=== PATIENT | male | born 1965 ===

== ENCOUNTER 2018-10-12 08:15 | Observation (INO) | payer OTHER ==
[2018-10-12] MEDS ORDERED: Albuterol-Ipratrop 3 mg / 0.5 (3 ml) UD ONE ×2 (08:35→18:29)
[2018-10-12] MEDS ORDERED: Albuterol-Ipratrop 3 mg / 0.5 (3 ml) UD IH STA (09:01)
[2018-10-12] MEDS ORDERED: Albuterol 0.083% Inhal Sol (2.5 mg/3 mL) UD INH STA (09:01)
[2018-10-12] MEDS ORDERED: Albuterol 0.083% Inhal Sol (2.5 mg/3 mL) UD ONE ×3 (09:12→11:05)
[2018-10-12] MEDS ORDERED: Albuterol 0.083% Inhal Sol (2.5 mg/3 mL) UD IH STA ×2 (09:14→10:45)
--- NOTE | 2018-10-12 10:32 | C.PDOC ---
History Of Present Illness 52 y/o male, with history of asthma, presents to ED complaining of cough and wheezing that started yesterday. States he doesnt have nebulizer at home. He denies any fever, chills, SOB, chest pain, or other complaints. Time Seen by Provider: 10/12/18 08:30 Chief Complaint (Nursing): Respiratory Distress History Per: Patient History/Exam Limitations: no limitations Onset/Duration Of Symptoms: Days Current Symptoms Are (Timing): Still Present Past Medical History Reviewed: Historical Data, Nursing Documentation, Vital Signs Vital Signs: Last Vital Signs Temp 97.9 F 10/12/18 10:12 Pulse 118 H 10/12/18 10:12 Resp 20 10/12/18 10:12 BP 138/81 10/12/18 10:12 Pulse Ox 96 10/12/18 10:12 Primary Care Provider: Blily Duran - Medical History PMH: Asthma Denies: Chronic Kidney Disease Family History: States: No Known Family Hx - Social History Hx Alcohol Use: Yes Hx Substance Use: No - Immunization History Hx Tetanus Toxoid Vaccination: No Hx Influenza Vaccination: No Review Of Systems Except As Marked, All Systems Reviewed And Found Negative. Constitutional: Negative for: Fever, Chills Cardiovascular: Negative for: Chest Pain, Palpitations Respiratory: Positive for: Cough, Wheezing. Negative for: Shortness of Breath Physical Exam - Physical Exam Appears: Non-toxic, No Acute Distress Skin: Warm, Dry Head: Normacephalic Eye(s): bilateral: Normal Inspection Oral Mucosa: Moist Neck: Supple Cardiovascular: Rhythm Regular, No Murmur Respiratory: No Accessory Muscle Use, No Rales, No Rhonchi, Wheezing (bilateral expiratory wheezing) Gastrointestinal/Abdominal: Soft Extremity: No Pedal Edema Extremity: Bilateral: Normal Color And Temperature, Normal ROM Neurological/Psych: Oriented x3, Normal Speech ED Course And Treatment - Laboratory Results Result Diagrams: 10/12/18 13:13 10/12/18 13:13 O2 Sat by Pulse Oximetry: 96 (RA) Pulse Ox Interpretation: Normal - Other Rad CXR X-Ray: Read By Radiologist Interpretation: FINDINGS: LUNGS: No active pulmonary disease. PLEURA: No sig nificant pleural effusion identified. No pneumothorax apparent. CARDIOVASCULAR: No aortic atherosclerotic calcification present. Normal cardiac size. No pulmonary vascular congestion. OSSEOUS STRUCTURES: No significant abnormalities. VISUALIZED UPPER ABDOMEN: Normal. OTHER FINDINGS: None. IMPRESSION: No radiographic evidence of pneumonia Progress Note: Chest XR ordered, which was normal. Patient given prednisone, duoneb, and albuterol. On re-evaluation, patient is feelingb slightly better, but still wheezing. Update: (10:46) Patient is tachycardic and O2 Sat on room air is still low, will given magnesium sulfate IV. Solumedrol IV oredered. Patient stil wheezing and hypoxic. contacted Hospitalist interim controller who covers for patient's PMD Jannie. Patient will go to tele for observation and nebulizer treatments. Disposition - Disposition Disposition: HOSPITALIZED Disposition Time: 14:08 Condition: FAIR - Clinical Impression Clinical Impression: Exacerbation of asthma - PA / [employer]ER / Resident Statement MD/DO has reviewed & agrees with the documentation as recorded. - Scribe Statement The provider has reviewed the documentation as recorded by the Scribe Nathaly Lindsay All medical record entries made by the Scribe were at my direction and personally dictated by me. I have reviewed the chart and agree that the record accurately reflects my personal performance of the history, physical exam, medical decision making, and the department course for this patient. I have also personally directed, reviewed, and agree with the discharge instructions and disposition. Decision To Admit - Pt Status Changed To: Hospital Disposition Of: Observation - . Bed Request Type: Telemetry Admitting Physician: Valery Cedeno Patient Diagnosis: Exacerbation of asthma
[2018-10-12] MEDS ORDERED: Magnesium Sulfate 1 gm in D5W 1 GM/100 ML BAG IVPB STA ×2 (10:44→12:15)
[2018-10-12] MEDS ORDERED: Magnesium Sulfate 1 gm in D5W 1 GM/100 ML BAG IVPB ONE ×2 (11:05→12:00)
--- NOTE | 2018-10-12 11:26 | RAD ---
Date of service: 10/12/2018 HISTORY: cough/wheezing COMPARISON: Comparison is made with 03/17/2012 TECHNIQUE: Chest PA and lateral views FINDINGS: LUNGS: No active pulmonary disease. PLEURA: No significant pleural effusion identified. No pneumothorax apparent. CARDIOVASCULAR: No aortic atherosclerotic calcification present. Normal cardiac size. No pulmonary vascular congestion. OSSEOUS STRUCTURES: No significant abnormalities. VISUALIZED UPPER ABDOMEN: Normal. OTHER FINDINGS: None. IMPRESSION: No radiographic evidence of pneumonia
[2018-10-12 13:26] LABS: BASO % 0.4 % (0.0-2.0); EOS % 0.3 % (0.0-4.0); HEMOGLOBIN 16.5 g/dL (12.0-18.0); LYMPH # 0.6 K/uL (1.0-4.3); LYMPH % 5.2 % (20.0-40.0); MEAN CELL VOLUME 80.2 fL (80.0-94.0); MEAN CORPUSCULAR HEMOGLOBIN 27.7 pg (27.0-31.0); MEAN CORPUSCULAR HGB CONC 34.5 g/dL (33.0-37.0); MEAN PLATELET VOLUME 8.9 fL (7.2-11.7); MONO # 0.2 K/uL (0.0-0.8); MONO % 1.5 % (0.0-10.0); NEUT # 11.6 K/uL (1.8-7.0); NEUT % 92.6 % (50.0-75.0); NRBC % 0.1 % (0.0-2.0); PLATELET COUNT 270 K/uL (130-400); RBC 5.96 Mil/uL (4.40-5.90); RED CELL DISTRIBUTION WIDTH 13.9 % (11.5-14.5); WHITE BLOOD COUNT 12.5 K/uL (4.8-10.8)
[2018-10-12 13:41] LABS: ALB/GLOB RATIO 1.3 (1.0-2.1); ALBUMIN 4.4 g/dL (3.5-5.0); BLOOD UREA NITROGEN 7 mg/dL (9-20); CALCIUM 9.2 mg/dl (8.6-10.4); GFR NON-AFRICAN AMERICAN > 60
[2018-10-12 13:42] LABS: ALT/SGPT 31 U/L (21-72); AST/SGOT 26 U/L (17-59)
[2018-10-12 14:07] LABS: BANDS 3 % (0-2); LYMPHOCYTE 7 % (20-40); MONOCYTE 1 % (0-10); NEUTROPHIL 89 % (50-75); PLATELET ESTIMATE NORMAL (NORMAL); TOTAL CELLS COUNTED 100
[2018-10-12 14:08] LABS: ANISOCYTOSIS SLIGHT; LARGE PLATELETS PRESENT
--- NOTE | 2018-10-12 14:35 | CP.PCM.HP ---
<Kavita Bates - Last Filed: 10/12/18 20:54> History of Present Illness - History of Present Illness History of Present Illness: Resident History & Physical for Hospitalist Service Patient is a 52 year old male with past medical history of asthma (no previous intubations) and impaired glucose tolerance presenting with chief complaint of shortness of breath which began two days ago. Patient denies any nighttime awakenings, however he does use his ventolin inhaler and theophylline 7-10x a week. Admits to changes in severity of shortness of breath with weather changes as well as weight changes. Denies any recent illnesses, sick contacts, or travel. Denies fevers, chills, chest pain, nausea, vomiting, abdominal pain, diarrhea, dysuria. PMH: asthma, IGT PSH: denies SHx: 1-2 cigarettes a day for the past 30 years, social alcohol use, denies illicit drugs FHx: father from M.I., mother from natural causes Allergies: NKDA PMD: Dr. Arpit Duran Present on Admission - Present on Admission Any Indicators Present on Admission: No Review of Systems - Review of Systems All systems: reviewed and no additional remarkable complaints except (as per HPI) Past Patient History - Infectious Disease Hx of Infectious Diseases: None - Past Social History Smoking Status: Light Smoker < 10 Cigarettes Daily - CARDIAC Hx Cardiac Disorders: No - PULMONARY Hx Asthma: Yes - NEUROLOGICAL Hx Neurological Disorder: No - HEENT Hx HEENT Problems: No - RENAL Hx Chronic Kidney Disease: No - ENDOCRINE/METABOLIC Hx Endocrine Disorders: No - HEMATOLOGICAL/ONCOLOGICAL Hx Blood Disorders: No - INTEGUMENTARY Hx Dermatological Problems: No - MUSCULOSKELETAL/RHEUMATOLOGICAL Hx Musculoskeletal Disorders: No - GASTROINTESTINAL Hx Gastrointestinal Disorders: No - GENITOURINARY/GYNECOLOGICAL Hx Genitourinary Disorders: No - PSYCHIATRIC Hx Substance Use: No - SURGICAL HISTORY Hx Surgeries: No - ANESTHESIA Hx Anesthesia: No Meds Home Medications: Home Medication List Medication Instructions Recorded Confirmed Type Albuterol 0.083% [Albuterol 3 ml IH .Q4-6H #100 vial 10/12/18 Rx Sulfate 3 Ml] Albuterol HFA [Ventolin HFA 90 1 puff IH .Q4-6H #1 inhaler 10/12/18 Rx mcg/actuation (8 g)] Mask, Face [Nebulizer Aerosol Mask 1 dev XX PRN PRN #1 dev 10/12/18 Rx Adult] Nebulizer [Compact Compressor 1 dev XX PRN PRN #1 dev 10/12/18 Rx Nebulizer] predniSONE [predniSONE Tab] 2 tab PO DAILY #8 tab 10/12/18 Rx Atorvastatin [Lipitor] 10 mg PO HS #30 tab 10/13/18 Rx Losartan [Cozaar] 12.5 mg PO DAILY #30 tab 10/13/18 Rx metFORMIN [glucOPHAGE] 500 mg PO BID #60 tab 10/13/18 Rx Fluticasone/Vilanterol 100/25 1 puff INH RQD #1 inh 10/14/18 Rx [Breo Ellipta 100-25 MCG INH] Omeprazole 40 mg PO DAILY #5 capsule. 10/14/18 Rx Singulair 10 mg PO DAILY #30 10/14/18 Rx Allergies/Adverse Reactions: Allergies Allergy/AdvReac Type Severity Reaction Status Date / Time No Known Allergies Allergy Verified 10/12/18 08:25 Physical Exam - Constitutional Appears: Non-toxic, No Acute Distress - Head Exam Head Exam: ATRAUMATIC, NORMOCEPHALIC - Eye Exam Eye Exam: EOMI, Normal appearance, PERRL - ENT Exam ENT Exam: Mucous Membranes Moist - Respiratory Exam Respiratory Exam: Prolonged Expiratory Phase, Wheezes. absent: Accessory Muscle Use, Decreased Breath Sounds, Rales, Rhonchi, Respiratory Distress Additional comments: speaking in full sentences - Cardiovascular Exam Cardiovascular Exam: Tachycardia, REGULAR RHYTHM, +S1, +S2. absent: Systolic Murmur - GI/Abdominal Exam GI & Abdominal Exam: Normal Bowel Sounds, Soft. absent: Distended, Firm, Guarding, Rebound, Rigid, Tenderness - Extremities Exam Extremities exam: Positive for: normal inspection - Back Exam Back exam: NORMAL INSPECTION. absent: CVA tenderness (L), CVA tenderness (R) - Neurological Exam Neurological exam: Alert, CN II-XII Intact, Oriented x3 - Psychiatric Exam Psychiatric exam: Normal Affect, Normal Mood - Skin Skin Exam: Dry, Intact, Warm Results - Vital Signs Recent Vital Signs: Last Vital Signs Temp 97.9 F 10/12/18 10:12 Pulse 109 H 10/12/18 13:32 Resp 18 10/12/18 13:32 BP 133/68 10/12/18 13:32 Pulse Ox 96 10/12/18 14:10 - Labs Result Diagrams: 10/12/18 13:13 10/12/18 13:13 Labs: Laboratory Results - last 24 hr 10/12/18 10/12/18 13:13 13:13 WBC 12.5 H RBC 5.96 H Hgb 16.5 Hct 47.8 MCV 80.2 MCH 27.7 MCHC 34.5 RDW 13.9 Plt Count 270 MPV 8.9 Neut % (Auto) 92.6 H Lymph % (Auto) 5.2 L [place] % (Auto) 1.5 Eos % (Auto) 0.3 Baso % (Auto) 0.4 Neut # (Auto) 11.6 H Lymph # (Auto) 0.6 L [place] # (Auto) 0.2 Eos # (Auto) 0.0 Baso # (Auto) 0.0 Neutrophils % (Manual) 89 H Band Neutrophils % 3 H Lymphocytes % (Manual) 7 L Monocytes % (Manual) 1 Platelet Estimate Normal Large Platelets Present Anisocytosis (manual) Slight Sodium 135 Potassium 3.8 Chloride 103 Carbon Dioxide 23 Anion Gap 14 BUN 7 L Creatinine 0.6 L Est GFR ( Amer) > 60 Est GFR (Non-Af Amer) > 60 Random Glucose 191 H Calcium 9.2 Total Bilirubin 0.6 AST 26 ALT 31 Alkaline Phosphatase 149 H Total Protein 7.8 Albumin 4.4 Globulin 3.3 Albumin/Globulin Ratio 1.3 Assessment & Plan - Assessment and Plan (Free Text) Assessment: Patient is a 52 year old male with past medical history of asthma (no previous intubations) and impaired glucose tolerance presenting with acute exacerbation of asthma. Plan: Acute exacerbation of asthma - received multiple duonebs and solu-medrol in ED - Solu-medrol 40 mg IV Q8H - Duonebs Q6H with pre and post peak flow - Pulmonology Dr. Kumari consulted, appreciate recs - Breo Ellipta 25/100 1 puff daily Leukocytosis with left shift, acute - likely due to steroids as labwork done 4 hours after administration of prednisone - CXR shows no active disease, afebrile Impaired glucose tolerance, chronic - TSH, free T4 - Lipid panel - Hgba1c - RISS, hypoglycemic protocol - diabetic diet Nicotine addiction - cessation counseling provided - Nicotine patch taper PPX - SCDs - Protonix as patient is on steroids Dispo: pending pulmonology recs, place patient on observation and if peak flow improves plan for discharge 10/13/[address] Oj Bates PGY-1 <Oj Martinez J - Last Filed: 10/14/18 19:15> Results - Vital Signs Recent Vital Signs: Last Vital Signs Temp 98.2 F 10/14/18 15:00 Pulse 77 10/14/18 15:00 Resp 20 10/14/18 15:00 BP 133/72 10/14/18 15:00 Pulse Ox 94 L 10/14/18 15:00 - Labs Result Diagrams: 10/14/18 08:37 10/14/18 08:37 Labs: Laboratory Results - last 24 hr 10/13/18 10/14/18 10/14/18 21:31 07:45 08:37 WBC 23.1 H RBC 5.63 Hgb 15.9 Hct 46.0 MCV 81.6 MCH 28.3 MCHC 34.6 RDW 14.1 Plt Count 323 MPV 9.2 Neut % (Auto) 91.1 H Lymph % (Auto) 7.5 L [place] % (Auto) 1.2 Eos % (Auto) 0.0 Baso % (Auto) 0.2 Neut # (Auto) 21.1 H Lymph # (Auto) 1.7 [place] # (Auto) 0.3 Eos # (Auto) 0.0 Baso # (Auto) 0.0 Neutrophils % (Manual) 93 H Lymphocytes % (Manual) 7 L Monocytes % (Manual) TEST NOT PERFORMED Platelet Estimate Normal RBC Morphology Normal Sodium Potassium Chloride Carbon Dioxide Anion Gap BUN Creatinine Est GFR ( Amer) Est GFR (Non-Af Amer) POC Glucose (mg/dL) 179 H 165 H Random Glucose Calcium Phosphorus Magnesium Total Bilirubin AST ALT Alkaline Phosphatase Total Protein Albumin Globulin Albumin/Globulin Ratio 10/14/18 10/14/18 08:37 11:23 WBC RBC Hgb Hct MCV MCH MCHC RDW Plt Count MPV Neut % (Auto) Lymph % (Auto) [place] % (Auto) Eos % (Auto) Baso % (Auto) Neut # (Auto) Lymph # (Auto) [place] # (Auto) Eos # (Auto) Baso # (Auto) Neutrophils % (Manual) Lymphocytes % (Manual) Monocytes % (Manual) Platelet Estimate RBC Morphology Sodium 137 Potassium 4.9 Chloride 102 Carbon Dioxide 26 Anion Gap 14 BUN 20 Creatinine 0.8 Est GFR ( Amer) > 60 Est GFR (Non-Af Amer) > 60 POC Glucose (mg/dL) 199 H Random Glucose 151 H Calcium 9.6 Phosphorus 4.2 Magnesium 2.4 H Total Bilirubin 0.6 AST 26 ALT 33 Alkaline Phosphatase 109 Total Protein 7.4 Albumin 4.1 Globulin 3.3 Albumin/Globulin Ratio 1.3 Attending/Attestation - Attestation I have personally seen and examined this patient.: Yes I have fully participated in the care of the patient.: Yes I have reviewed all pertinent clinical information: Yes Notes (Text): 10/14/18 19:14 This is a late entry. History, Physical, Assessment and Plan, Orders and Care of this patient was gone over in detail with resident Dr. Walls. Oj Martinez D.O.
[2018-10-12] MEDS ORDERED: Dextrose 50% SYRINGE Inj (50 ml) IV PRN (15:47)
[2018-10-12] MEDS ORDERED: Glucagon Recombinant 1 mg Inj IM PRN (15:47)
[2018-10-12] MEDS ORDERED: MethylPREDNISolone 40 mg Vial ONE (16:52)
[2018-10-12] MEDS: MethylPREDNISolone 40 mg Vial IVP SCH (17:10)
[2018-10-12] MEDS ORDERED: (Novolin R) Insulin Human Regular 100 units/ml vial ONE (17:12)
[2018-10-12] MEDS: (Novolin R) Insulin Human Regular 100 units/ml vial SC SCH ×2 (17:14→21:55)
[2018-10-12] MEDS: Albuterol-Ipratrop 3 mg / 0.5 (3 ml) UD INH SCH (18:26)
[2018-10-12 19:36] VITALS: RESP 20
[2018-10-13] MEDS: MethylPREDNISolone 40 mg Vial IVP SCH ×3 (00:27→16:48)
[2018-10-13] MEDS: Albuterol-Ipratrop 3 mg / 0.5 (3 ml) UD INH SCH ×2 (01:14→06:59)
[2018-10-13 07:29] LABS: HDL CHOLESTEROL 61 mg/dL (30-70)
[2018-10-13 07:39] LABS: LDL CHOLESTEROL 141 mg/dL (0-129)
[2018-10-13] MEDS: (Novolin R) Insulin Human Regular 100 units/ml vial SC SCH ×4 (07:45→21:43)
[2018-10-13] MEDS ORDERED: Fluticasone-Vilanterol 100/25mcg Diskus INH SCH (08:00)
--- NOTE | 2018-10-13 09:49 | CP.PCM.PN ---
<Denis Valenzuela - Last Filed: 10/13/18 16:13> Subjective - Date & Time of Evaluation Date of Evaluation: 10/13/18 Time of Evaluation: 09:15 - Subjective Subjective: PGY1 Medicine progress note for Dr. Jazmyn Martinez Pt seen and examined at bedside. Pt is resting comfortably. No acute events overnight. Continues to report intermittent shortness of breath, exacerbated with ambulation. Endorses palpitations after duoneb treatment. Denies fevers, chills, chest pain, abdominal pain, n/v/d, leg pain or swelling, headache, dizziness. Objective - Vital Signs/Intake and Output Vital Signs (last 24 hours): Temp Pulse Resp BP Pulse Ox 97.9 F 108 H 20 132/77 96 10/13/18 07:45 10/13/18 07:45 10/13/18 07:45 10/13/18 07:45 10/13/18 07:45 - Medications Medications: Current Medications Acetaminophen (Tylenol 325mg Tab) 650 mg PO Q6H PRN PRN Reason: Pain, moderate (4-7) Albuterol/Ipratropium (Duoneb 3 Mg/0.5 Mg (3 Ml) Ud) 3 ml INH RQ6 [facility]ON Last Admin: 10/13/18 06:59 Dose: 3 ml Dextrose (Dextrose 50% Inj) 0 ml IV STAT PRN; Protocol PRN Reason: Hypoglycemia Protocol Dextrose (Glutose 15) 0 gm PO ONCE PRN; Protocol PRN Reason: Hypoglycemia Protocol Enoxaparin Sodium (Lovenox) 40 mg SC DAILY TOAN Fluticasone/Vilanterol (Breo Ellipta 100-25 Mcg Inh) 1 puff INH RQD TOAN Last Admin: 10/13/18 08:22 Dose: Not Given Glucagon (Glucagen Diagnostic Kit) 0 mg IM STAT PRN; Protocol PRN Reason: Hypoglycemia Protocol Dextrose (Dextrose 5% In Water 1000 Ml) 1,000 mls @ 0 mls/hr IV .Q0M PRN; Protocol PRN Reason: Hypoglycemia Protocol Insulin Human Regular (Novolin R) 0 unit SC ACHS TOAN; Protocol Last Admin: 10/13/18 07:45 Dose: 2 units Methylprednisolone (Solu-Medrol) 40 mg IVP Q8H TOAN Last Admin: 10/13/18 07:45 Dose: 40 mg Nicotine (Nicoderm Cq) 1 patch TD DAILY [facility] Last Admin: 10/12/18 17:14 Dose: Not Given Pneumococcal Polyvalent Vaccine (Pneumovax 23 Vaccine) 0.5 ml IM .ONCE ONE Stop: 10/13/18 10:01 - Labs Labs: 10/12/18 13:13 10/12/18 13:13 - Constitutional Appears: Non-toxic, No Acute Distress - Head Exam Head Exam: ATRAUMATIC, NORMAL INSPECTION - Eye Exam Eye Exam: EOMI, Normal appearance - ENT Exam ENT Exam: Mucous Membranes Moist - Respiratory Exam Respiratory Exam: Wheezes. absent: Rales, Respiratory Distress, Stridor - Cardiovascular Exam Cardiovascular Exam: Tachycardia (at approximately 100), REGULAR RHYTHM, +S1, + S2. absent: Diastolic murmur, Irregular Rhythm - GI/Abdominal Exam GI & Abdominal Exam: Soft, Normal Bowel Sounds. absent: Distended, Firm, Guarding, Rigid, Tenderness - Extremities Exam Extremities Exam: Normal Capillary Refill, Normal Inspection. absent: Calf Tenderness, Pedal Edema, Tenderness - Back Exam Back Exam: NORMAL INSPECTION - Neurological Exam Neurological Exam: Alert, Awake - Psychiatric Exam Psychiatric exam: Normal Affect, Normal Mood - Skin Skin Exam: Dry, Normal Color, Warm Assessment and Plan (1) Exacerbation of asthma Assessment & Plan: Ipratropium INH due to pt having palpitations due to Albuterol Breo Ellipta once daily Solumedrol 40 mg IV q8 Pulmonology, Dr. Kumari, consulted. Status: Acute (2) Diabetes Assessment & Plan: Hx of Impaired Glucose Tolerance HgbA1c is 6.8 Accuchecks ACHS RISS Hypoglycemia protocol TSH is 0.33, f/u FT4 On discharge: Atorvastatin 10 mg PO QD Losartan 12.5 mg PO QD Metformin 500 mg PO BID Status: Acute (3) Nicotine dependence Assessment & Plan: Nicotine patch Status: Acute (4) Prophylactic measure Assessment & Plan: Protonix 40 mg PO daily Lovenox 40 mg SC daily Case discussed with Dr. Jazmyn Valenzuela PGY1 Status: Acute <Oj Martinez - Last Filed: 10/14/18 19:14> Objective - Vital Signs/Intake and Output Vital Signs (last 24 hours): Temp Pulse Resp BP Pulse Ox 98.2 F 77 20 133/72 94 L 10/14/18 15:00 10/14/18 15:00 10/14/18 15:00 10/14/18 15:00 10/14/18 15:00 - Labs Labs: 10/14/18 08:37 10/14/18 08:37 Attending/Attestation - Attestation I have personally seen and examined this patient.: Yes I have fully participated in the care of the patient.: Yes I have reviewed all pertinent clinical information, including history, physical exam and plan: Yes Notes (Text): 10/14/18 19:14 This is a late entry. Care of this patient was gone over in detail with resident Dr. Valenzuela. Oj Martinez D.O.
[2018-10-13] MEDS: Enoxaparin 40 mg Syringe SC SCH (09:53)
[2018-10-13] MEDS ORDERED: Pneumococcal 23-Valent Vaccine IM ONE (10:00)
[2018-10-13 10:06] LABS: BASO # 0.1 K/uL (0.0-0.2); BASO % 0.3 % (0.0-2.0); HEMOGLOBIN 16.4 g/dL (12.0-18.0); LYMPH # 1.4 K/uL (1.0-4.3); LYMPH % 7.1 % (20.0-40.0); MEAN CELL VOLUME 81.4 fL (80.0-94.0); MEAN CORPUSCULAR HEMOGLOBIN 27.5 pg (27.0-31.0); MEAN CORPUSCULAR HGB CONC 33.7 g/dL (33.0-37.0); MEAN PLATELET VOLUME 9.4 fL (7.2-11.7); MONO # 0.2 K/uL (0.0-0.8); MONO % 0.9 % (0.0-10.0); NEUT # 18.7 K/uL (1.8-7.0); NEUT % 91.7 % (50.0-75.0); NRBC % 0.4 % (0.0-2.0); PLATELET COUNT 314 K/uL (130-400); RBC 5.99 Mil/uL (4.40-5.90); RED CELL DISTRIBUTION WIDTH 14.2 % (11.5-14.5)
[2018-10-13 10:08] LABS: WHITE BLOOD COUNT 20.4 K/uL (4.8-10.8)
[2018-10-13 10:29] LABS: ALB/GLOB RATIO 1.4 (1.0-2.1); ALBUMIN 4.6 g/dL (3.5-5.0); ALT/SGPT 26 U/L (21-72); AST/SGOT 39 U/L (17-59); BLOOD UREA NITROGEN 20 mg/dL (9-20); CALCIUM 9.7 mg/dl (8.6-10.4); GFR NON-AFRICAN AMERICAN > 60
[2018-10-13] MEDS: Pantoprazole 40 mg EC Tab PO SCH (11:06)
[2018-10-13 11:46] LABS: LYMPHOCYTE 6 % (20-40); NEUTROPHIL 94 % (50-75); TOTAL CELLS COUNTED 100
[2018-10-13 11:47] LABS: PLATELET ESTIMATE NORMAL (NORMAL)
[2018-10-13] MEDS ORDERED: Ipratropium 0.02% Inhal Soln (0.5 mg/2.5 ml) UD IH SCH (12:00)
--- NOTE | 2018-10-13 17:17 | CP.PCM.CON ---
History of Present Illness - History of Present Illness History of Present Illness: Reason for consultation: Shortness of breath 52-year-old male with history of asthma presented to emergency room complaining of shortness of breath worsening over the past few days. Denies cough, denies fever chills, denies chest pain. Also complaining of wheezing but denies nausea vomiting, diarrhea or constipation. Patient with long history of smoking PMH: asthma, IGT PSH: denies SHx: 1-2 cigarettes a day for the past 30 years, social alcohol use, denies illicit drugs FHx: father from M.I., mother from natural causes Allergies: NKDA Review of Systems - Review of Systems All systems: reviewed and no additional remarkable complaints except (Shortness of breath) Past Patient History - Infectious Disease Hx of Infectious Diseases: None - Past Social History Smoking Status: Light Smoker < 10 Cigarettes Daily - CARDIAC Hx Cardiac Disorders: No - PULMONARY Hx Asthma: Yes - NEUROLOGICAL Hx Neurological Disorder: No - HEENT Hx HEENT Problems: No - RENAL Hx Chronic Kidney Disease: No - ENDOCRINE/METABOLIC Hx Endocrine Disorders: No - HEMATOLOGICAL/ONCOLOGICAL Hx Blood Disorders: No - INTEGUMENTARY Hx Dermatological Problems: No - MUSCULOSKELETAL/RHEUMATOLOGICAL Hx Musculoskeletal Disorders: No - GASTROINTESTINAL Hx Gastrointestinal Disorders: No - GENITOURINARY/GYNECOLOGICAL Hx Genitourinary Disorders: No - PSYCHIATRIC Hx Substance Use: No - SURGICAL HISTORY Hx Surgeries: No - ANESTHESIA Hx Anesthesia: No Meds Home Medications: Home Medication List Medication Instructions Recorded Confirmed Type Albuterol 0.083% [Albuterol 3 ml IH .Q4-6H #100 vial 10/12/18 Rx Sulfate 3 Ml] Albuterol HFA [Ventolin HFA 90 1 puff IH .Q4-6H #1 inhaler 10/12/18 Rx mcg/actuation (8 g)] Mask, Face [Nebulizer Aerosol Mask 1 dev XX PRN PRN #1 dev 10/12/18 Rx Adult] Nebulizer [Compact Compressor 1 dev XX PRN PRN #1 dev 10/12/18 Rx Nebulizer] predniSONE [predniSONE Tab] 2 tab PO DAILY #8 tab 10/12/18 Rx Atorvastatin [Lipitor] 10 mg PO HS #30 tab 10/13/18 Rx Losartan [Cozaar] 12.5 mg PO DAILY #30 tab 10/13/18 Rx metFORMIN [glucOPHAGE] 500 mg PO BID #60 tab 10/13/18 Rx Allergies/Adverse Reactions: Allergies Allergy/AdvReac Type Severity Reaction Status Date / Time No Known Allergies Allergy Verified 10/12/18 08:25 - Medications Medications: Current Medications Acetaminophen (Tylenol 325mg Tab) 650 mg PO Q6H PRN PRN Reason: Pain, moderate (4-7) Dextrose (Dextrose 50% Inj) 0 ml IV STAT PRN; Protocol PRN Reason: Hypoglycemia Protocol Dextrose (Glutose 15) 0 gm PO ONCE PRN; Protocol PRN Reason: Hypoglycemia Protocol Enoxaparin Sodium (Lovenox) 40 mg SC DAILY [facility] Last Admin: 10/13/18 09:53 Dose: Not Given Fluticasone/Vilanterol (Breo Ellipta 100-25 Mcg Inh) 1 puff INH RQD [facility] Last Admin: 10/13/18 08:22 Dose: Not Given Glucagon (Glucagen Diagnostic Kit) 0 mg IM STAT PRN; Protocol PRN Reason: Hypoglycemia Protocol Dextrose (Dextrose 5% In Water 1000 Ml) 1,000 mls @ 0 mls/hr IV .Q0M PRN; Protocol PRN Reason: Hypoglycemia Protocol Insulin Human Regular (Novolin R) 0 unit SC ACHS [facility]; Protocol Last Admin: 10/13/18 16:48 Dose: Not Given Ipratropium Truchas (Atrovent) 0.5 mg IH RQ6 [facility] Last Admin: 10/13/18 13:40 Dose: 0.5 mg Methylprednisolone (Solu-Medrol) 40 mg IVP Q8H [facility] Last Admin: 10/13/18 16:48 Dose: 40 mg Nicotine (Nicoderm Cq) 1 patch TD DAILY [facility] Last Admin: 10/13/18 09:53 Dose: Not Given Pantoprazole Sodium (Protonix Ec Tab) 40 mg PO DAILY [facility] Last Admin: 10/13/18 11:06 Dose: 40 mg Pneumococcal Polyvalent Vaccine (Pneumovax 23 Vaccine) 0.5 ml IM .ONCE ONE Stop: 10/14/18 10:01 Physical Exam - Head Exam Head Exam: ATRAUMATIC, NORMOCEPHALIC - ENT Exam ENT Exam: Mucous Membranes Moist - Neck Exam Neck exam: Positive for: Normal Inspection - Respiratory Exam Respiratory Exam: Rhonchi, Wheezes - Cardiovascular Exam Cardiovascular Exam: REGULAR RHYTHM - GI/Abdominal Exam GI & Abdominal Exam: Normal Bowel Sounds, Soft - Extremities Exam Extremities exam: Positive for: normal inspection - Neurological Exam Neurological exam: Alert, Oriented x3 Results - Vital Signs Recent Vital Signs: Last Vital Signs Temp 98.1 F 10/13/18 16:00 Pulse 101 H 10/13/18 16:00 Resp 20 10/13/18 16:00 BP 133/78 10/13/18 16:00 Pulse Ox 93 L 10/13/18 16:00 - Labs Result Diagrams: 10/13/18 09:59 10/13/18 06:44 Labs: Laboratory Results - last 24 hr 10/12/18 10/12/18 10/12/18 17:53 17:53 21:47 WBC RBC Hgb Hct MCV MCH MCHC RDW Plt Count MPV Neut % (Auto) Lymph % (Auto) [place] % (Auto) Eos % (Auto) Baso % (Auto) Neut # (Auto) Lymph # (Auto) [place] # (Auto) Eos # (Auto) Baso # (Auto) Neutrophils % (Manual) Lymphocytes % (Manual) Monocytes % (Manual) Platelet Estimate RBC Morphology Sodium Potassium Chloride Carbon Dioxide Anion Gap BUN Creatinine Est GFR ( Amer) Est GFR (Non-Af Amer) POC Glucose (mg/dL) 302 H Random Glucose Hemoglobin A1c 6.8 H Calcium Phosphorus Magnesium Total Bilirubin AST ALT Alkaline Phosphatase Total Protein Albumin Globulin Albumin/Globulin Ratio Triglycerides Cholesterol LDL Cholesterol Direct HDL Cholesterol TSH 3rd Generation 0.33 L 10/13/18 10/13/18 10/13/18 06:44 07:11 09:59 WBC 20.4 H D RBC 5.99 H Hgb 16.4 Hct 48.8 MCV 81.4 MCH 27.5 MCHC 33.7 RDW 14.2 Plt Count 314 MPV 9.4 Neut % (Auto) 91.7 H Lymph % (Auto) 7.1 L [place] % (Auto) 0.9 Eos % (Auto) 0.0 Baso % (Auto) 0.3 Neut # (Auto) 18.7 H Lymph # (Auto) 1.4 [place] # (Auto) 0.2 Eos # (Auto) 0.0 Baso # (Auto) 0.1 Neutrophils % (Manual) 94 H Lymphocytes % (Manual) 6 L Monocytes % (Manual) TEST NOT PERFORMED Platelet Estimate Normal RBC Morphology Normal Sodium 136 Potassium 4.0 Chloride 106 Carbon Dioxide 18 L Anion Gap 17 BUN 20 Creatinine 0.7 L Est GFR ( Amer) > 60 Est GFR (Non-Af Amer) > 60 POC Glucose (mg/dL) 161 H Random Glucose 161 H Hemoglobin A1c Calcium 9.7 Phosphorus 3.3 Magnesium 2.3 Total Bilirubin 0.5 AST 39 ALT 26 Alkaline Phosphatase 123 Total Protein 7.8 Albumin 4.6 Globulin 3.2 Albumin/Globulin Ratio 1.4 Triglycerides 108 Cholesterol 232 H LDL Cholesterol Direct 141 H HDL Cholesterol 61 TSH 3rd Generation 10/13/18 10/13/18 11:18 16:23 WBC RBC Hgb Hct MCV MCH MCHC RDW Plt Count MPV Neut % (Auto) Lymph % (Auto) [place] % (Auto) Eos % (Auto) Baso % (Auto) Neut # (Auto) Lymph # (Auto) [place] # (Auto) Eos # (Auto) Baso # (Auto) Neutrophils % (Manual) Lymphocytes % (Manual) Monocytes % (Manual) Platelet Estimate RBC Morphology Sodium Potassium Chloride Carbon Dioxide Anion Gap BUN Creatinine Est GFR ( Amer) Est GFR (Non-Af Amer) POC Glucose (mg/dL) 248 H 123 H Random Glucose Hemoglobin A1c Calcium Phosphorus Magnesium Total Bilirubin AST ALT Alkaline Phosphatase Total Protein Albumin Globulin Albumin/Globulin Ratio Triglycerides Cholesterol LDL Cholesterol Direct HDL Cholesterol TSH 3rd Generation Assessment & Plan (1) Exacerbation of asthma Status: Acute Comment: Continue with steroids. Nebulizer treatment. Singulair. IgE level
[2018-10-13] MEDS: Ipratropium 0.02% Inhal Soln (0.5 mg/2.5 ml) UD IH SCH (19:44)
[2018-10-13] MEDS ORDERED: Albuterol-Ipratrop 3 mg / 0.5 (3 ml) UD INH SCH (20:00)
--- NOTE | 2018-10-13 20:40 | CARD ---
APPROVED REPORT Date of service: 10/12/2018 EKG Measurement Heart [id number] <Conclusion> Sinus tachycardia Otherwise normal ECG
[2018-10-14] MEDS: MethylPREDNISolone 40 mg Vial IVP SCH ×2 (01:06→07:56)
[2018-10-14] MEDS: Ipratropium 0.02% Inhal Soln (0.5 mg/2.5 ml) UD IH SCH ×3 (01:16→14:15)
[2018-10-14] MEDS: (Novolin R) Insulin Human Regular 100 units/ml vial SC SCH ×2 (07:56→12:12)
[2018-10-14 08:48] LABS: BASO % 0.2 % (0.0-2.0); HEMOGLOBIN 15.9 g/dL (12.0-18.0); LYMPH # 1.7 K/uL (1.0-4.3); LYMPH % 7.5 % (20.0-40.0); MEAN CELL VOLUME 81.6 fL (80.0-94.0); MEAN CORPUSCULAR HEMOGLOBIN 28.3 pg (27.0-31.0); MEAN CORPUSCULAR HGB CONC 34.6 g/dL (33.0-37.0); MEAN PLATELET VOLUME 9.2 fL (7.2-11.7); MONO # 0.3 K/uL (0.0-0.8); MONO % 1.2 % (0.0-10.0); NEUT # 21.1 K/uL (1.8-7.0); NEUT % 91.1 % (50.0-75.0); NRBC % 0.2 % (0.0-2.0); PLATELET COUNT 323 K/uL (130-400); RBC 5.63 Mil/uL (4.40-5.90); RED CELL DISTRIBUTION WIDTH 14.1 % (11.5-14.5); WHITE BLOOD COUNT 23.1 K/uL (4.8-10.8)
[2018-10-14 09:11] LABS: ALB/GLOB RATIO 1.3 (1.0-2.1); ALBUMIN 4.1 g/dL (3.5-5.0); ALT/SGPT 33 U/L (21-72); AST/SGOT 26 U/L (17-59); BLOOD UREA NITROGEN 20 mg/dL (9-20); CALCIUM 9.6 mg/dl (8.6-10.4); GFR NON-AFRICAN AMERICAN > 60
[2018-10-14] MEDS: Enoxaparin 40 mg Syringe SC SCH (09:40)
[2018-10-14] MEDS: Pantoprazole 40 mg EC Tab PO SCH (09:41)
[2018-10-14] MEDS ORDERED: Pneumococcal 23-Valent Vaccine IM ONE (10:00)
[2018-10-14 11:40] LABS: LYMPHOCYTE 7 % (20-40); NEUTROPHIL 93 % (50-75); PLATELET ESTIMATE NORMAL (NORMAL); TOTAL CELLS COUNTED 100
--- NOTE | 2018-10-14 12:41 | CP.PCM.PCO ---
Physician Communication Note - Physician Communication Note Physician Communication Note: Please see above
--- NOTE | 2018-10-14 13:21 | CP.PCM.DIS ---
<BiancaDenis - Last Filed: 10/14/18 18:30> Provider - Provider Date of Admission: 10/12/18 13:58 Attending physician: Oj Martinez MD Consults: 10/12/18 15:45 Pulmonology Consult Routine Comment: Consulting Provider: Jose Kumari Consulting Physician: Jose Kumari Reason for Consult: hx asthma, uncontrolled Time Spent in preparation of Discharge (in minutes): 35 Diagnosis - Discharge Diagnosis (1) Exacerbation of asthma Status: Acute (2) Diabetes Status: Acute (3) Nicotine dependence Status: Acute (4) Prophylactic measure Status: Acute Hospital Course - Lab Results Lab Results: Most Recent Lab Values WBC 23.1 K/uL (4.8-10.8) H 10/14/18 08:37 RBC 5.63 Mil/uL (4.40-5.90) 10/14/18 08:37 Hgb 15.9 g/dL (12.0-18.0) 10/14/18 08:37 Hct 46.0 % (35.0-51.0) 10/14/18 08:37 MCV 81.6 fL (80.0-94.0) 10/14/18 08:37 MCH 28.3 pg (27.0-31.0) 10/14/18 08:37 MCHC 34.6 g/dL (33.0-37.0) 10/14/18 08:37 RDW 14.1 % (11.5-14.5) 10/14/18 08:37 Plt Count 323 K/uL (130-400) 10/14/18 08:37 MPV 9.2 fL (7.2-11.7) 10/14/18 08:37 Neut % (Auto) 91.1 % (50.0-75.0) H 10/14/18 08:37 Lymph % (Auto) 7.5 % (20.0-40.0) L 10/14/18 08:37 [place] % (Auto) 1.2 % (0.0-10.0) 10/14/18 08:37 Eos % (Auto) 0.0 % (0.0-4.0) 10/14/18 08:37 Baso % (Auto) 0.2 % (0.0-2.0) 10/14/18 08:37 Neut # (Auto) 21.1 K/uL (1.8-7.0) H 10/14/18 08:37 Lymph # (Auto) 1.7 K/uL (1.0-4.3) 10/14/18 08:37 [place] # (Auto) 0.3 K/uL (0.0-0.8) 10/14/18 08:37 Eos # (Auto) 0.0 K/uL (0.0-0.7) 10/14/18 08:37 Baso # (Auto) 0.0 K/uL (0.0-0.2) 10/14/18 08:37 Neutrophils % (Manual) 93 % (50-75) H 10/14/18 08:37 Band Neutrophils % 3 % (0-2) H 10/12/18 13:13 Lymphocytes % (Manual) 7 % (20-40) L 10/14/18 08:37 Monocytes % (Manual) TEST NOT PERFORMED 10/14/18 08:37 Platelet Estimate Normal (NORMAL) 10/14/18 08:37 Large Platelets Present 10/12/18 13:13 RBC Morphology Normal 10/14/18 08:37 Anisocytosis (manual) Slight 10/12/18 13:13 Sodium 137 mmol/L (132-148) 10/14/18 08:37 Potassium 4.9 mmol/L (3.6-5.2) 10/14/18 08:37 Chloride 102 mmol/L (98-107) 10/14/18 08:37 Carbon Dioxide 26 mmol/L (22-30) 10/14/18 08:37 Anion Gap 14 (10-20) 10/14/18 08:37 BUN 20 mg/dL (9-20) 10/14/18 08:37 Creatinine 0.8 mg/dL (0.8-1.5) 10/14/18 08:37 Est GFR ( Amer) > 60 10/14/18 08:37 Est GFR (Non-Af Amer) > 60 10/14/18 08:37 POC Glucose (mg/dL) 199 mg/dL (65-110) H 10/14/18 11:23 Random Glucose 151 mg/dL (75-110) H 10/14/18 08:37 Hemoglobin A1c 6.8 % (4.2-6.5) H 10/12/18 17:53 Calcium 9.6 mg/dl (8.6-10.4) 10/14/18 08:37 Phosphorus 4.2 mg/dL (2.5-4.5) 10/14/18 08:37 Magnesium 2.4 mg/dL (1.6-2.3) H 10/14/18 08:37 Total Bilirubin 0.6 mg/dL (0.2-1.3) 10/14/18 08:37 AST 26 U/L (17-59) 10/14/18 08:37 ALT 33 U/L (21-72) 10/14/18 08:37 Alkaline Phosphatase 109 U/L (38-126) 10/14/18 08:37 Total Protein 7.4 g/dL (6.3-8.3) 10/14/18 08:37 Albumin 4.1 g/dL (3.5-5.0) 10/14/18 08:37 Globulin 3.3 gm/dL (2.2-3.9) 10/14/18 08:37 Albumin/Globulin Ratio 1.3 (1.0-2.1) 10/14/18 08:37 Triglycerides 108 mg/dL (0-149) 10/13/18 06:44 Cholesterol 232 mg/dL (0-199) H 10/13/18 06:44 LDL Cholesterol Direct 141 mg/dL (0-129) H 10/13/18 06:44 HDL Cholesterol 61 mg/dL (30-70) 10/13/18 06:44 TSH 3rd Generation 0.33 mIU/L (0.46-4.68) L 10/12/18 17:53 - Hospital Course Hospital Course: On admission: Patient is a 52-year-old male with a past medical history of asthma (no previous intubations) and impaired glucose tolerance presenting with chief complaint of shortness of breath which began two days ago. Patient denies any nighttime awakenings, however he does use his Ventolin inhaler and theophylline 7-10x a week. Admits to changes in severity of shortness of breath with weather changes as well as weight changes. Denies any recent illnesses, sick contacts, or travel. Denies fever, chills, chest pain, nausea, vomiting, abdominal pain, diarrhea, dysuria. Hospital course: Patient presented to the hospital due to shortness of breath for [address] Kumari was consulted. Patient treated with RYAN/antimuscarinic, LABA, IV steroids and ICS. We stopped Albuterol due to palpitations. Pt with improved respiratory conditions during hospitalization. Patient will follow up outpatient with Dr. Kumari for PFTs. Patient has a history of impaired glucose tolerance and blood sugars were controlled throughout hospital course. However, HgbA1c was 6.8. Pt given prescription for metformin, ASAEL-i, statin; and he was instructed to follow up with his PMD for counseling. This is a summary of the hospital course. Please see EMR for full details. Patient was seen and examined at 12:30 PM 10/14/18 368 B Currently upon FULL ROS: States that he is less short of breath and chest tightness with ambulation NO cough Feels like his breathing has improved since his admission and that the breathing treatments and singulair have helped him HEENT, Cardio, Resp, GI, Ext, CN II through XII exam are unremarkable except where noted: Diffuse expiratory wheezing although present has dramatically improved since his admission Speaking in full sentences off of oxygen with NO signs of respiratory distress Leukocytosis however no fevers and likely secondary to the Solumedrol NO fevers B/P and Heart rate are stable Presenting symptoms have improved and patient feels better to go home The following instructions were explained to patient and a copy will need to be provided to him upon discharge: 1). Follow up with your Primary Care Physician Dr. Arpit Duran in the next 7 days. 2). Due to your new diagnosis of Diabetes, through Dr. Duran's office obtain referral for eye doctor to have your eyes examined and a utility maintenance worker to have your feet examined. Both of these should be done once a year in all people with diabetes. 3). You need to have your lung volumes measured. Please schedule appointment with Lung physician Dr. Kumari by calling his office [phone] in the next 7 to 10 days. Make sure to obtain referral from Dr. Duran. 4). You must stop smoking as this will worsen your Asthma as well as it can cause cause cancer. You may purchase the Nicoder CQ patch treatment at [facility] without a prescription. 5). Please have the following prescriptions filled at your pharmacy on your way home from the hospital. These are the only medications that you should be taking: Metformin 500 mg, 1 tablet by mouth 2x/day (8 AM breakfast and 8 PM dinner), Dispense #60 Losartan 25 mg, take 1/2 tablet by mouth 1x/day (8 AM ), Dispense #30 Atorvastatin 10 mg, 1 tablet by mouth 1x/day (8 PM), Dispense #30 Breo Ellipta 25/100 mcg per actuation, once everyday inhalation by mouth, Dispense #1 Albuterol 90 mcg per actuation, 2 inhalations by mouth every 6 hours on 10/14/18 and 10/15/18 and then starting on 10/16/18 every 6 hours ONLY as needed for shortness of breath, Dispense #1 Singulair 10 mg, 1 tablet by mouth 1x/day (8 PM), Dispense #30 Omeprazole 40 mg, 1 tablet by mouth 1x/day from 10/15/18 through 10/18/18, Dispense #5 Prednisone 10 m tablets by mouth all at once at 8 AM breakfast on 10/15/18 4 tablets by mouth all at once at 8 AM breakfast on 10/16/18 3 tablets by mouth all at once at 8 AM breakfast on 10/17/18 2 tablets by mouth all at once at 8 AM breakfast on 10/18/18 1 tablet by mouth all at once at 8 AM breakfast on 10/19/18 Dispense #15 6). DO NOT take Theophylline 7). Take care of your self, be well, and listen to your daughter who is trying to get you to stop smoking. You have a smart daughter. Oj Martinez D.O. Discharge Exam - Additional Findings Additional findings: - Constitutional Appears: Non-toxic, No Acute Distress - Head Exam Head Exam: ATRAUMATIC, NORMAL INSPECTION - Eye Exam Eye Exam: EOMI, Normal appearance - ENT Exam ENT Exam: Mucous Membranes Moist - Respiratory Exam Respiratory Exam: diffuse expiratory wheezes. absent: Rales, Respiratory Distress, Stridor - Cardiovascular Exam Cardiovascular Exam: REGULAR RHYTHM, +S1, +S2. absent: Tachycardia, Diastolic murmur, Irregular Rhythm - GI/Abdominal Exam GI & Abdominal Exam: Soft, Normal Bowel Sounds. absent: Distended, Firm, Guarding, Rigid, Tenderness - Extremities Exam Extremities Exam: Normal Capillary Refill, Normal Inspection. absent: Calf Tenderness, Pedal Edema, Tenderness - Back Exam Back Exam: NORMAL INSPECTION - Neurological Exam Neurological Exam: Alert, Awake - Psychiatric Exam Psychiatric exam: Normal Affect, Normal Mood - Skin Skin Exam: Dry, Normal Color, Warm Discharge Plan - Discharge Medications Prescriptions: Albuterol 0.083% [Albuterol Sulfate 3 Ml] 3 ml IH .Q4-6H #100 vial Albuterol HFA [Ventolin HFA 90 mcg/actuation (8 g)] 1 puff IH .Q4-6H #1 inhaler Atorvastatin [Lipitor] 10 mg PO HS #30 tab Fluticasone/Vilanterol 100/25 [Breo Ellipta 100-25 MCG INH] 1 puff INH RQD #1 inh Losartan [Cozaar] 12.5 mg PO DAILY #30 tab Mask, Face [Nebulizer Aerosol Mask Adult] 1 dev XX PRN PRN #1 dev PRN Reason: Wheezing metFORMIN [glucOPHAGE] 500 mg PO BID #60 tab Nebulizer [Compact Compressor Nebulizer] 1 dev XX PRN PRN #1 dev PRN Reason: Wheezing Omeprazole 40 mg PO DAILY #5 capsule. predniSONE [predniSONE Tab] 2 tab PO DAILY #8 tab Singulair 10 mg PO DAILY #30 - Follow Up Plan Condition: GOOD Disposition: HOME/ ROUTINE Instructions: Asthma, Adult (DC) Additional Instructions: 1). Follow up with your Primary Care Physician Dr. Arpit Duran in the next 7 days. 2). Due to your new diagnosis of Diabetes, through Dr. Duran's office obtain referral for eye doctor to have your eyes examined and a utility maintenance worker to have your feet examined. Both of these should be done once a year in all people with diabetes. 3). You need to have your lung volumes measured. Please schedule appointment with Lung physician Dr. Kumari by calling his office [phone] in the next 7 to 10 days. Make sure to obtain referral from Dr. Duran. 4). You must stop smoking as this will worsen your Asthma as well as it can cause cause cancer. You may purchase the Nicoder CQ patch treatment at [facility] without a prescription. 5). Please have the following prescriptions filled at your pharmacy on your way home from the hospital. These are the only medications that you should be taking: Metformin 500 mg, 1 tablet by mouth 2x/day (8 AM breakfast and 8 PM dinner), Dispense #60 Losartan 25 mg, take 1/2 tablet by mouth 1x/day (8 AM ), Dispense #30 Atorvastatin 10 mg, 1 tablet by mouth 1x/day (8 PM), Dispense #30 Breo Ellipta 25/100 mcg per actuation, once everyday inhalation by mouth, Dispense #1 Albuterol 90 mcg per actuation, 2 inhalations by mouth every 6 hours on 10/14/18 and 10/15/18 and then starting on 10/16/18 every 6 hours ONLY as needed for shortness of breath, Dispense #1 Singulair 10 mg, 1 tablet by mouth 1x/day (8 PM), Dispense #30 Omeprazole 40 mg, 1 tablet by mouth 1x/day from 10/15/18 through 10/18/18, Dispense #5 Prednisone 10 m tablets by mouth all at once at 8 AM breakfast on 10/15/18 4 tablets by mouth all at once at 8 AM breakfast on 10/16/18 3 tablets by mouth all at once at 8 AM breakfast on 10/17/18 2 tablets by mouth all at once at 8 AM breakfast on 10/18/18 1 tablet by mouth all at once at 8 AM breakfast on 10/19/18 Dispense #15 6). DO NOT take Theophylline 7). Take care of your self, be well, and listen to your daughter who is trying to get you to stop smoking. You have a smart daughter. Referrals: Billy Duran MD [Staff Provider] - <Oj Martinez - Last Filed: 10/14/18 19:13> Provider - Provider Date of Admission: 10/12/18 13:58 Attending physician: Oj Martinez MD Consults: 10/12/18 15:45 Pulmonology Consult Routine Comment: Consulting Provider: Jose Kumari Consulting Physician: Jose Kumari Reason for Consult: hx asthma, uncontrolled Hospital Course - Lab Results Lab Results: Most Recent Lab Values WBC 23.1 K/uL (4.8-10.8) H 10/14/18 08:37 RBC 5.63 Mil/uL (4.40-5.90) 10/14/18 08:37 Hgb 15.9 g/dL (12.0-18.0) 10/14/18 08:37 Hct 46.0 % (35.0-51.0) 10/14/18 08:37 MCV 81.6 fL (80.0-94.0) 10/14/18 08:37 MCH 28.3 pg (27.0-31.0) 10/14/18 08:37 MCHC 34.6 g/dL (33.0-37.0) 10/14/18 08:37 RDW 14.1 % (11.5-14.5) 10/14/18 08:37 Plt Count 323 K/uL (130-400) 10/14/18 08:37 MPV 9.2 fL (7.2-11.7) 10/14/18 08:37 Neut % (Auto) 91.1 % (50.0-75.0) H 10/14/18 08:37 Lymph % (Auto) 7.5 % (20.0-40.0) L 10/14/18 08:37 [place] % (Auto) 1.2 % (0.0-10.0) 10/14/18 08:37 Eos % (Auto) 0.0 % (0.0-4.0) 10/14/18 08:37 Baso % (Auto) 0.2 % (0.0-2.0) 10/14/18 08:37 Neut # (Auto) 21.1 K/uL (1.8-7.0) H 10/14/18 08:37 Lymph # (Auto) 1.7 K/uL (1.0-4.3) 10/14/18 08:37 [place] # (Auto) 0.3 K/uL (0.0-0.8) 10/14/18 08:37 Eos # (Auto) 0.0 K/uL (0.0-0.7) 10/14/18 08:37 Baso # (Auto) 0.0 K/uL (0.0-0.2) 10/14/18 08:37 Neutrophils % (Manual) 93 % (50-75) H 10/14/18 08:37 Band Neutrophils % 3 % (0-2) H 10/12/18 13:13 Lymphocytes % (Manual) 7 % (20-40) L 10/14/18 08:37 Monocytes % (Manual) TEST NOT PERFORMED 10/14/18 08:37 Platelet Estimate Normal (NORMAL) 10/14/18 08:37 Large Platelets Present 10/12/18 13:13 RBC Morphology Normal 10/14/18 08:37 Anisocytosis (manual) Slight 10/12/18 13:13 Sodium 137 mmol/L (132-148) 10/14/18 08:37 Potassium 4.9 mmol/L (3.6-5.2) 10/14/18 08:37 Chloride 102 mmol/L (98-107) 10/14/18 08:37 Carbon Dioxide 26 mmol/L (22-30) 10/14/18 08:37 Anion Gap 14 (10-20) 10/14/18 08:37 BUN 20 mg/dL (9-20) 10/14/18 08:37 Creatinine 0.8 mg/dL (0.8-1.5) 10/14/18 08:37 Est GFR ( Amer) > 60 10/14/18 08:37 Est GFR (Non-Af Amer) > 60 10/14/18 08:37 POC Glucose (mg/dL) 199 mg/dL (65-110) H 10/14/18 11:23 Random Glucose 151 mg/dL (75-110) H 10/14/18 08:37 Hemoglobin A1c 6.8 % (4.2-6.5) H 10/12/18 17:53 Calcium 9.6 mg/dl (8.6-10.4) 10/14/18 08:37 Phosphorus 4.2 mg/dL (2.5-4.5) 10/14/18 08:37 Magnesium 2.4 mg/dL (1.6-2.3) H 10/14/18 08:37 Total Bilirubin 0.6 mg/dL (0.2-1.3) 10/14/18 08:37 AST 26 U/L (17-59) 10/14/18 08:37 ALT 33 U/L (21-72) 10/14/18 08:37 Alkaline Phosphatase 109 U/L (38-126) 10/14/18 08:37 Total Protein 7.4 g/dL (6.3-8.3) 10/14/18 08:37 Albumin 4.1 g/dL (3.5-5.0) 10/14/18 08:37 Globulin 3.3 gm/dL (2.2-3.9) 10/14/18 08:37 Albumin/Globulin Ratio 1.3 (1.0-2.1) 10/14/18 08:37 Triglycerides 108 mg/dL (0-149) 10/13/18 06:44 Cholesterol 232 mg/dL (0-199) H 10/13/18 06:44 LDL Cholesterol Direct 141 mg/dL (0-129) H 10/13/18 06:44 HDL Cholesterol 61 mg/dL (30-70) 10/13/18 06:44 TSH 3rd Generation 0.33 mIU/L (0.46-4.68) L 10/12/18 17:53 Attending/Attestation - Attestation I have personally seen and examined this patient.: Yes I have fully participated in the care of the patient.: Yes I have reviewed all pertinent clinical information, including history, physical exam and plan: Yes Notes (Text): 10/14/18 19:11 Care of this patient and discharge instructions were thoroughly gone over with resident Dr. Valenzuela. Oj Martinez D.O.
--- NOTE | 2018-10-14 14:12 | CP.PCM.PN ---
Subjective - Date & Time of Evaluation Date of Evaluation: 10/14/18 Time of Evaluation: 11:00 - Subjective Subjective: Patient seen and examined Breathing much improved but still having slight cough Sitting comfortably in no distress Objective - Vital Signs/Intake and Output Vital Signs (last 24 hours): Temp Pulse Resp BP Pulse Ox 97.9 F 73 20 124/79 95 10/14/18 08:00 10/14/18 08:00 10/14/18 08:00 10/14/18 08:00 10/14/18 08:00 Intake and Output: 10/14/18 10/14/18 06:59 18:59 Intake Total 200 Balance 200 - Medications Medications: Current Medications Acetaminophen (Tylenol 325mg Tab) 650 mg PO Q6H PRN PRN Reason: Pain, moderate (4-7) Dextrose (Dextrose 50% Inj) 0 ml IV STAT PRN; Protocol PRN Reason: Hypoglycemia Protocol Dextrose (Glutose 15) 0 gm PO ONCE PRN; Protocol PRN Reason: Hypoglycemia Protocol Enoxaparin Sodium (Lovenox) 40 mg SC DAILY [facility] Last Admin: 10/14/18 09:40 Dose: Not Given Fluticasone/Vilanterol (Breo Ellipta 100-25 Mcg Inh) 1 puff INH RQD [facility] Last Admin: 10/13/18 08:22 Dose: Not Given Glucagon (Glucagen Diagnostic Kit) 0 mg IM STAT PRN; Protocol PRN Reason: Hypoglycemia Protocol Dextrose (Dextrose 5% In Water 1000 Ml) 1,000 mls @ 0 mls/hr IV .Q0M PRN; Protocol PRN Reason: Hypoglycemia Protocol Insulin Human Regular (Novolin R) 0 unit SC ACHS [facility]; Protocol Last Admin: 10/14/18 12:12 Dose: 2 units Ipratropium [place] (Atrovent) 0.5 mg IH RQ6 [facility] Last Admin: 10/14/18 08:29 Dose: 0.5 mg Methylprednisolone (Solu-Medrol) 40 mg IVP Q8H [facility] Last Admin: 10/14/18 07:56 Dose: 40 mg Montelukast Sodium (Singulair) 10 mg PO HS [facility] Last Admin: 10/13/18 21:11 Dose: 10 mg Nicotine (Nicoderm Cq) 1 patch TD DAILY [facility] Last Admin: 10/14/18 09:40 Dose: Not Given Pantoprazole Sodium (Protonix Ec Tab) 40 mg PO DAILY [facility] Last Admin: 10/14/18 09:41 Dose: 40 mg - Labs Labs: 10/14/18 08:37 10/14/18 08:37 - Head Exam Head Exam: ATRAUMATIC, NORMOCEPHALIC - ENT Exam ENT Exam: Mucous Membranes Moist - Neck Exam Neck Exam: Normal Inspection - Respiratory Exam Respiratory Exam: Rhonchi - Cardiovascular Exam Cardiovascular Exam: REGULAR RHYTHM - GI/Abdominal Exam GI & Abdominal Exam: Soft, Normal Bowel Sounds - Extremities Exam Extremities Exam: Normal Inspection - Neurological Exam Neurological Exam: Alert, Oriented x3 Assessment and Plan (1) Exacerbation of asthma Assessment & Plan: Okay to discharge home on p.o. prednisone and tapering dose Rescue inhaler as needed Singulair 10 mg once daily LABA/ICS inhaler Follow-up in the office for PFTs Status: Acute
[2018-10-14 16:20] VITALS: BP 133/72; PULSE 77; TEMP 98.2; O2SAT 94
== END 2018-10-14 16:51 | disposition home or self-care (01) ==
LOC: C.ER 08:15 → C.9E 13:58 → C.3T 18:48
PROVIDERS: ADMIT Family Medicine; ATTEND Family Medicine
DX: J45.901 Unspecified asthma with (acute) exacerbation (principal); E11.9 Type 2 diabetes mellitus without complications; F17.200 Nicotine dependence, unspecified, uncomplicated; R00.2 Palpitations; D72.829 Elevated white blood cell count, unspecified
CPT/HCPCS: 36415; 71046; 80053; 80061; 82785; 82948; 83036; 83735; 84100; 84443; 85025; 93005; 94150; 94640; 96365; 96372; 96374; 99285; G0378; J2920; J2930; J3475